=== PATIENT | male | born 1980 | race Caucasian/White ===

== ENCOUNTER 2020-12-03 22:39 | Emergency (ER) | payer BC ==
[~2020-12-03] VITALS: Ht 190.5 cm; Wt 115.0 kg
[~2020-12-03 22:39] MED LIST: BLUE GOO TOP; CEPH500C PO; FAMO20TA5 PO; PRD20T PO
[2020-12-03] MEDS ORDERED: LIDOCAINE 2% VISCOUS 15 ML UDC PO ONE (23:45)
[2020-12-03] MEDS ORDERED: SUCRALFATE 1 GM (CARAFATE) TAB PO ONE (23:45)
[2020-12-03] MEDS ORDERED: ANTACID SUSP 30 ML UDC (MYLANTA) PO ONE (23:45)
--- NOTE | 2020-12-04 00:09 | ED General ---
General Chief Complaint: Skin/Wound Problems Stated Complaint: RASH FROM RX Nursing Triage Note: Pt ambulatory into ER with complaint of possible allergic reaction. Pt states that he started taking omeprazole in the last hour and now states that he has a rash on his chest. Pt assessed and has no obvious rash, no signs of allergic reaction, or respiratory difficulties. Nursing Sepsis Screen: No Definite Risk History of Present Illness Date Seen by Provider: Dec 04, 2020 Time Seen by Provider: 23:30 Initial Comments Patient is a 40-year-old male who presents to the emergency department today with a chief complaint of possible allergic reaction after starting omeprazole. Patient states that he took omeprazole within about an hour of arrival and started having itching and rash on his chest. Patient is also complaining of discomfort in his throat over the course of the last couple of days. He went to [facility] urgent care today and was given a prescription for amoxicillin for presumptive strep as well as the omeprazole for presumptive GERD. Patient states that he has had hiccups off and on for the last couple of days and increasing symptoms of a fullness in his chest when he swallows. He denies actual chest pain, shortness of breath, nausea, vomiting. No fevers or chills, no cough or URI symptoms. Patient states nothing really makes the sore throat any better or any worse. He has not taken any ibuprofen. By the time I saw the patient the rash is improving. He looks well nontoxic appearing. No acute complaints other than the throat discomfort. All other review of systems reviewed and negative except as stated above. Timing/Duration: 1-2 Days Severity: Moderate Associated Systoms: Other (Sore throat) Allergies and Home Medications Allergies Coded Allergies: No Known Drug Allergies (Unverified , 03/21/14) Home Medications Cephalexin Monohydrate 500 Mg Capsule, 1 EACH PO TID Prescribed by: RENATO WALLIS on 04/13/14 1335 Patient Home Medication List Home Medication List Reviewed: Yes Review of Systems Review of Systems Constitutional: see HPI EENTM: throat pain Respiratory: no symptoms reported Cardiovascular: no symptoms reported Gastrointestinal: no symptoms reported Genitourinary: no symptoms reported Musculoskeletal: no symptoms reported Skin: pruritus, rash All Other Systems Reviewed Negative Unless Noted: Yes Past Euidwwt-Uayogj-Angzvc Hx Patient Social History Alcohol Use: Regular Use Smoking Status: Current Everyday Smoker Type Used: Cigarettes Recent Infectious Disease Expo: No Immunizations Up To Date Tetanus Booster (TDap): Less than 5yrs Date of Influenza Vaccine: Apr 17, 2014 Seasonal Allergies Seasonal Allergies: Yes Past Medical History Reproductive Disorders: No Family Medical History Patient reports no known family medical history. Physical Exam Vital Signs Vital Signs - First Documented 12/03/20 22:48 Temp 36.8 Pulse 71 Resp 16 B/P (MAP) 159/100 (119) Pulse Ox 97 O2 Delivery Room Air Capillary Refill : Less Than 3 Seconds Height, Weight, BMI Height: 6'3" Weight: 175lbs. oz. [id number]; 31.00 BMI Method:Estimated General Appearance: No Apparent Distress, WD/WN Eyes: Bilateral Eye Normal Inspection, Bilateral Eye PERRL, Bilateral Eye EOMI HEENT: TMs Normal, Normal ENT Inspection, Pharyngeal Erythema (Mild pharyngeal erythema noted no petechia on the palate no pus on his tonsils no cervical lymphadenopathy) Neck: Normal Inspection, Non Tender, Supple Respiratory: Lungs Clear, Normal Breath Sounds, No Accessory Muscle Use, No Respiratory Distress Cardiovascular: Regular Rate, Rhythm, Normal Peripheral Pulses Gastrointestinal: Non Tender, Soft Extremity: Normal Inspection, Normal Range of Motion Neurologic/Psychiatric: Alert, Oriented x3, No Motor/Sensory Deficits, Normal Mood/Affect Skin: Normal Color, Warm/Dry, Other (Very fine fading rash of hives noted across the anterior upper chest wall this is minimal) Progress/Results/Core Measures Suspected Sepsis Recent Fever Within 48 Hours: No Infection Criteria Present: None New/Unexplained Altered Menta: No Sepsis Screen: No Definite Risk SIRS Temperature: Pulse: 71 Respiratory Rate: 16 Blood Pressure 159 /100 Mean: 119 Results/Orders My Orders Orders - GAB MCKEON MD Sucralfate Tablet (Carafate Tablet) (12/03/20 23:45) Lidocaine 2% Viscous 15 Ml (Xylocaine Vi (12/03/20 23:45) Antacid Suspension (Mylanta Suspension (12/03/20 23:45) Medications Given in ED Current Medications Medications Dose Ordered Sig/Ky Route Start Time Stop Time Status Last Admin Dose Admin Al Hydrox/Mg Hydrox/Simethicone 30 ml ONCE ONCE PO 12/03/20 23:45 12/03/20 23:46 DC 12/03/20 23:45 30 ML Lidocaine HCl 5 ml ONCE ONCE PO 12/03/20 23:45 12/03/20 23:46 DC 12/03/20 23:44 5 ML Sucralfate 1 gm ONCE ONCE PO 12/03/20 23:45 12/03/20 23:46 DC 12/03/20 23:44 1 GM Vital Signs/I&O 12/03/20 22:48 Temp 36.8 Pulse 71 Resp 16 B/P (MAP) 159/100 (119) Pulse Ox 97 O2 Delivery Room Air Capillary Refill : Less Than 3 Seconds Blood Pressure Mean: 119 Departure Impression Primary Impression: GERD (gastroesophageal reflux disease) Qualified Codes: K21.9 - Gastro-esophageal reflux disease without esophagitis Additional Impression: Allergic reaction Qualified Codes: T78.40XA - Allergy, unspecified, initial encounter Disposition: HOME, SELF-CARE Condition: Stable Departure-Patient Inst. Decision time for Depature: 00:14 Referrals: [facility] [place] [facility],LOCAL PHYSICIAN (PCP) Primary Care Physician Patient Instructions: Acid Reflux and Gastroesophageal Reflux Disease in Bhavin lts, Drug Allergy Add. Discharge Instructions: You can stop taking the amoxicillin and omeprazole. If you have a return of hives or itching you can take 1-2 Benadryl tablets every 6 hours as needed for the itching. Take [id number] Pepcid, twice daily for the next 4 weeks. This will help your symptoms of fullness in your throat and chest when you swallow. Follow-up with a primary care physician. Come back to the emergency department for any new, concerning or emergent compla ints. GAB MCKEON MD Dec 04, 2020 00:09
[2020-12-04 00:28] VITALS: BP 142/101
== END 2020-12-04 00:28 | disposition home or self-care (01) ==
LOC: EDUNIT# 22:39 → ER 22:40
DX: K21.9 Gastro-esophageal reflux disease without esophagitis (principal); T47.1X5A Adverse effect of other antacids and anti-gastric-secretion drugs, initial encounter; F17.210 Nicotine dependence, cigarettes, uncomplicated
CPT/HCPCS: 99283

== ENCOUNTER 2022-12-10 07:47 | Outpatient (CLI) | payer BC | END 2022-12-10 08:05 | LOC: SLEEP 07:47 | PROVIDERS: ATTEND Family Medicine | DX: G47.33 Obstructive sleep apnea (adult) (pediatric) (principal) | CPT/HCPCS: G0399 ==

== ENCOUNTER 2023-02-10 10:03 | Emergency (ER) | payer BC ==
[~2023-02-10] VITALS: Ht 190 cm; Wt 113.0 kg
--- NOTE | 2023-02-10 10:23 | ED EENT ---
History of Present Illness General Chief Complaint: Dental Problems/Pain Stated Complaint: TOOTH PAIN Nursing Triage Note: PT AMB TO [facility], PT STATES HAS L LOWER JAW SWELLING STARTED YESTERDAY. PT RATES PAIN 11/24. PT STATES HAD 2 ROOT CANALS L LOWER MOLARS APPROX 2 MONTHS AGO. DENIES FEVERS Source: patient Exam Limitations: no limitations History of Present Illness Date Seen by Provider: Feb 10, 2023 Time Seen by Provider: 10:13 Initial Comments 42-year-old male presents emergency department today for left neck, facial swelling. Symptoms started yesterday afternoon and he states when he woke up it was "doubled in size." He had a root canal about 2 weeks ago but was doing well from that standpoint. He denies any fevers or chills. He does have significant pain with swallowing but no difficulty swallowing or handling his own secretions. No shortness of breath. All other systems reviewed and negative except documented per HPI. Voice recognition software was used to help create this chart Allergies and Home Medications Allergies Coded Allergies: No Known Drug Allergies (Unverified , 03/21/14) Patient Home Medication List Home Medication List Reviewed: Yes Cephalexin Monohydrate (Cephalexin) 500 Mg Capsule, 1 EACH PO TID Prescribed by: RENATO WALLIS on 04/13/14 1335 Review of Systems Review of Systems Constitutional: see HPI Past Vheeiic-Losspq-Hkwsst Hx Patient Social History Tobacco Use?: Yes Tobacco type used: Cigars Smoking Status: Current Everyday Smoker Substance use?: No Alcohol Use?: Yes Alcohol type: Beer Alcohol Frequency: Daily Pt feels they are or have been: No Immunizations Up To Date Tetanus Booster (TDap): Less than 5yrs Seasonal Allergies Seasonal Allergies: Yes Past Medical History Surgery/Hospitalization HX: DENIES MEDICAL HX OR SURG Reproductive Disorders: No Family Medical History Patient reports no known family medical history. Physical Exam Vital Signs Vital Signs - First Documented 02/10/23 10:08 Temp 36.7 Pulse 63 Resp 18 B/P (MAP) 173/92 (119) Pulse Ox 99 Height, Weight, BMI Height: 6'3" Weight: 175lbs. oz. 79.721557jj; 31.00 BMI Method:Estimated General Appearance: WD/WN, no apparent distress Eyes: bilateral eye normal inspection, bilateral eye PERRL, bilateral eye EOMI Ears: bilateral ear auricle normal, bilateral ear canal normal, bilateral ear TM normal Nose: normal inspection Mouth/Throat: normal mouth inspection, other (No dental tenderness) Cardiovascular: regular rate, rhythm, no murmur, other (There is palpable s welling in the left lateral neck and just inferior to the mandible. There is tenderness palpation in this area. No skin changes.) Respiratory: chest non-tender, lungs clear, normal breath sounds Gastrointestinal: normal bowel sounds, non tender, soft Neurologic/Psychiatric: alert, normal mood/affect, oriented x 3 Skin: normal color, warm/dry Progress/Results/Core Measures Results/Orders My Orders Orders - KULWANTHUGO Will DO Ct Neck (Soft Tissue) W (02/10/23 10:22) Rapid Strep A Screen (02/10/23 10:23) Iohexol Injection (Omnipaque 350 Mg/Ml 1 (02/10/23 10:30) Received Contrast (Hold Metformin- Contr (02/10/23 10:30) Ns (Ivpb) 100 Ml (Sodium Chloride 0.9% 1 (02/10/23 10:30) Medications Given in ED Current Medications Medications Dose Ordered Sig/Ky Route Start Time Stop Time Status Last Admin Dose Admin Iohexol 75 ml ONCE ONCE IV 02/10/23 10:30 02/10/23 10:31 DC 02/10/23 10:53 75 ML Sodium Chloride 100 ml ONCE ONCE IV 02/10/23 10:30 02/10/23 10:31 DC 02/10/23 10:53 100 ML Vital Signs/I&O 02/10/23 10:08 Temp 36.7 Pulse 63 Resp 18 B/P (MAP) 173/92 (119) Pulse Ox 99 Blood Pressure Mean: 119 Departure Communication (Admissions) Patient is hemodynamically stable. CT scan shows likely sialoadenitis. No obvious stone however sialolithiasis would be the most common cause of this. Recommended sialagogues with sour candies. We will also give him antibiotics. Recommended if it does not get better he will need referral to an ENT. He will return immediately if he has difficulty swallowing secretions or food, fluids, fevers or if his symptoms change in any way concerning to him including shortness of breath. Impression Primary Impression: Sialoadenitis Disposition: HOME, SELF-CARE Condition: Stable Departure-Patient Inst. Referrals: CHELA SELLERS MD (PCP/Family) Primary Care Physician Patient Instructions: Salivary Gland Infection (DC) Add. Discharge Instructions: Take the antibiotics as prescribed until they are gone. Use sour candies to help express the stone if it is present. If your symptoms do not improve after antibiotic therapy you may need to get a referral to an ENT specialist. Return to the emergency department for any difficulty swallowing where you cannot swallow your spit, or if you develop any shortness of breath, fevers. All discharge instructions reviewed with patient and/or family. Voiced understanding. Scripts Cephalexin (Cephalexin) 500 Mg Capsule 500 MG PO Q6H for 7 Days, #28 CAP Prov: HUGO BLUM DO 02/10/23 HUGO BLUM DO Feb 10, 2023 10:23
[2023-02-10] MEDS ORDERED: IOHEXOL 350 MG/ML 100 ML (OMNIPAQUE 350) VIAL IV ONE (10:30)
[2023-02-10] MEDS ORDERED: NS 100 ML (IVPB) BAG IV ONE (10:30)
[2023-02-10] MEDS ORDERED: HOLD METFORMIN - RECEIVED CONTRAST 20 ML VIAL IV SCH (10:30)
--- NOTE | 2023-02-10 11:25 | Diagnostic Imaging Report ---
PROCEDURE: CT neck soft tissue with contrast. TECHNIQUE: Multiple contiguous axial images were obtained through the neck after the administration of contrast. Auto Exposure Controls were utilized during the CT exam to meet ALARA standards for radiation dose reduction. INDICATION: Lower jaw swelling and pain. Two root canals two months ago. COMPARISON: None. FINDINGS: Extensive mucosal thickening throughout the visualized maxillary, ethmoid and sphenoid sinuses. The floor of the mouth, tongue base, epiglottis and retropharyngeal space are negative. No suspicious enhancement or mass in the pharynx or larynx. Visualized esophagus is normal. The bilateral submandibular glands are enlarged with mild inflammatory changes about the left submandibular gland. Normal parotid glands. No radiopaque sialoliths. Normal thyroid. The major vessels in the neck are grossly patent. Enlarged level II cervical lymph node measuring up to 1.2 cm in short axis dimension maintains normal fatty hilum. No other cervical lymphadenopathy. Mild spondylotic changes in the cervical spine. No acute osseous findings. The lung apices are clear. IMPRESSION: 1. Enlarged bilateral submandibular glands, left greater than right. There are also mild inflammatory changes about the left submandibular gland, compatible with sialoadenitis. No radiopaque sialoliths identified. 2. Mildly enlarged left level II cervical lymph node is likely reactive. 3. Extensive paranasal sinus disease in the partially visualized paranasal sinuses. Dictated by: Dictated on workstation # [id number]
[2023-02-10] MEDS ORDERED: CEPH500C PO (11:36)
[2023-02-10] MEDS ORDERED: CEPHALEXIN 250 MG CAPSULE PO STA (11:37)
[2023-02-10 11:45] VITALS: BP 173/92
== END 2023-02-10 11:47 | disposition home or self-care (01) ==
LOC: EDUNIT# 10:03 → ER 10:05
DX: K11.20 Sialoadenitis, unspecified (principal); F17.210 Nicotine dependence, cigarettes, uncomplicated
CPT/HCPCS: 70491